=== PATIENT | male | born 1995 | race Caucasian/White ===

== ENCOUNTER → 2016-08-02 | Outpatient (CLI) | payer BC ==
[2016-08-02 14:50] LABS: ALBUMIN 4.3 g/dL (3.4-5.0); ANION GAP 17.9 MEQ/L (3-15); MAGNESIUM* 1.8 mg/dL (1.6-2.3); PHOSPHORUS 3.7 mg/dL (2.4-4.9)
== END ==
LOC: LAB 14:10
PROVIDERS: ATTEND Internal Medicine Nephrology
DX: N18.2 Chronic kidney disease, stage 2 (mild) (principal); E83.42 Hypomagnesemia; E55.9 Vitamin D deficiency, unspecified
CPT/HCPCS: 36415; 80069; 82306; 82570; 83735; 84156